=== PATIENT | male | born 1985 | race Caucasian/White ===

== ENCOUNTER 2017-04-20 01:21 | Emergency (ER) | payer OTHER ==
[2017-04-20] MEDS ORDERED: ONDANSETRON 4 MG/2 ML VIAL ONE (01:36)
[2017-04-20] MEDS ORDERED: ONDANSETRON 4 MG/2 ML VIAL IVP ONE (01:37)
[2017-04-20] MEDS ORDERED: fentaNYL 100 MCG/2 ML INJ IVP ONE (01:37)
[2017-04-20] MEDS ORDERED: NS 1,000 ML IV ONE ×2 (01:37→01:59)
--- NOTE | 2017-04-20 02:12 | EDPHY ---
H & P Stated Complaint: RLQ pain, R flank pain Time Seen by Provider: 04/20/17 01:37 HPI/ROS: HPI The patient presents with right-sided flank, right lower quadrant, right testicular pain. Symptoms began slowly at midnight while at rest. Pain began in his right testicle and then began to radiate upwards toward his abdomen and flank. The pain is sharp, intermittent, not improved with ibuprofen he took earlier. He has had several episodes of vomiting upon arrival in the emergency department. He has not had any dysuria or hematuria though he does feel urgency. He has not had a fever. He has not had a rash. He has had about 6 episodes of renal colic in his life, never requiring urologic intervention. He also has had intermittent testicular pain for the last several months. He was evaluated at [facility], had a normal testicular ultrasound and symptoms were thought to be related to bicycle riding. REVIEW OF SYSTEMS Constitutional: No fever, no chills. Eyes: No discharge. ENT: No sore throat. Cardiovascular: No chest pain, no palpitations. Respiratory: No cough, no shortness of breath. Gastrointestinal: See HPI Genitourinary: No hematuria. Musculoskeletal: No back pain. Skin: No rashes. Neurological: No headache. PMHx: Prior history of ureterolithiasis Soc Hx: [employer] student PHYSICAL General Appearance: Alert, no distress Eyes: Pupils equal and round no pallor or injection ENT, Mouth: Mucous membranes moist Respiratory: There are no retractions, lungs are clear to auscultation Cardiovascular: Regular rate and rhythm Gastrointestinal: Abdomen is soft and tender in the right lower quadrant, right flank tenderness no masses, bowel sounds normal , normal cremasteric reflex, no inguinal lymphadenopathy, normal testicular lie, no testicular tenderness or edema Neurological: A&O, moves all extremities Skin: Warm and dry, no rashes Musculoskeletal: Neck is supple non tender Extremities: symmetrical, full range of motion Psychiatric: Patient is oriented X 3, there is no agitation Source: Patient Exam Limitations: No limitations - Personal History Current Tetanus/Diphtheria Vaccine: Yes Current Tetanus Diphtheria and Acellular Pertussis (TDAP): Yes - Medical/Surgical History Hx Asthma: No Hx Chronic Respiratory Disease: No Hx Diabetes: No Hx Cardiac Disease: No Hx Renal Disease: No Hx Cirrhosis: No Hx Alcoholism: No Hx HIV/AIDS: No Hx Splenectomy or Spleen Trauma: No Other PMH: kidney stones - Social History Smoking Status: Current every day smoker Constitutional: Initial Vital Signs Temperature (C) 36.8 C 04/20/17 01:23 Heart Rate 61 04/20/17 01:23 Respiratory Rate 16 04/20/17 01:23 Blood Pressure 153/86 H 04/20/17 01:23 O2 Sat (%) 100 04/20/17 01:23 O2 Delivery Mode Room Air Allergies/Adverse Reactions: No Known Allergies Allergy (Unverified 04/20/17 01:23) Home Medications: Medication Instructions Recorded Tamsulosin HCl [Flomax 0.4 MG (*)] 0.4 mg PO DAILY #10 cap 04/20/17 Medical Decision Making Procedures: Bedside limited abdominal Ultrasound- performed and interpreted by me. Indication: Right-sided flank pain Findings: Right-sided nephrolithiasis, right-sided hydronephrosis, no left- sided hydronephrosis Impression: Right-sided hydronephrosis Differential Diagnosis: 32-year-old male with history of ureterolithiasis presents with several hours of right-sided testicular abdominal and flank pain associated with vomiting. On exam, uncomfortable appearing with normal vital signs, he is tender in his right flank and right lower quadrant. Differential diagnosis includes renal colic, pyelonephritis, appendicitis, less likely epididymitis. In the emergency department, patient received pain medication including lidocaine. Ultrasound at the bedside was performed by me showing right-sided hydronephrosis. Labs were remarkable for hematuria. In about testing, I feel the patient likely is suffering from recurrent ureterolithiasis. He felt better while he was in the Emergency Department on reassessment. He will be discharged home with Flomax and pain medication as well as Zofran. I have given him follow-up with Urology. He has always spontaneously passed kidney stones in the past. - Data Points Laboratory Results: Laboratory Results 04/20/17 01:35 04/20/17 01:35 04/20/17 04/20/17 04/20/17 02:15 01:35 01:35 WBC 10.57 10^3/uL H 10^3/uL (3.80-9.50) RBC 4.88 10^6/uL 10^6/uL (4.40-6.38) Hgb 15.3 g/dL g/dL (13.7-17.5) Hct 43.9 % % (40.0-51.0) MCV 90.0 fL fL (81.5-99.8) MCH 31.4 pg pg (27.9-34.1) MCHC 34.9 g/dL g/dL (32.4-36.7) RDW 12.0 % % (11.5-15.2) Plt Count 315 10^3/uL 10^3/uL (150-400) MPV 10.1 fL fL (8.7-11.7) Neut % (Auto) 41.9 % % (39.3-74.2) Lymph % (Auto) 48.8 % H % (15.0-45.0) [place] % (Auto) 7.4 % % (4.5-13.0) Eos % (Auto) 0.9 % % (0.6-7.6) Baso % (Auto) 0.8 % % (0.3-1.7) Nucleat RBC Rel Count 0.0 % % (0.0-0.2) Absolute Neuts (auto) 4.43 10^3/uL 10^3/uL (1.70-6.50) Absolute Lymphs (auto) 5.16 10^3/uL H 10^3/uL (1.00-3.00) Absolute Monos (auto) 0.78 10^3/uL 10^3/uL (0.30-0.80) Absolute Eos (auto) 0.10 10^3/uL 10^3/uL (0.03-0.40) Absolute Basos (auto) 0.08 10^3/uL 10^3/uL (0.02-0.10) Absolute Nucleated RBC 0.00 10^3/uL 10^3/uL (0-0.01) Immature Gran % 0.2 % % (0.0-1.1) Immature Gran # 0.02 10^3/uL 10^3/uL (0.00-0.10) Sodium 144 mEq/L mEq/L (135-145) Potassium 3.9 mEq/L mEq/L (3.5-5.2) Chloride 105 mEq/L mEq/L (97-110) Carbon Dioxide 22 mEq/l mEq/l (22-31) Anion Gap 17 mEq/L H mEq/L (8-16) BUN 19 mg/dL mg/dL (7-23) Creatinine 0.9 mg/dL mg/dL (0.7-1.3) Estimated GFR > 60 Glucose 120 mg/dL H mg/dL (70-100) Calcium 10.0 mg/dL mg/dL (8.5-10.4) Urine Color YELLOW Urine Appearance HAZY Urine pH 5.0 (5.0-7.5) Ur Specific [place] 1.021 (1.002-1.030) Urine Protein 1+ H (NEGATIVE) Urine Ketones TRACE H (NEGATIVE) Urine Blood 3+ H (NEGATIVE) Urine Nitrate NEGATIVE (NEGATIVE) Urine Bilirubin NEGATIVE (NEGATIVE) Urine Urobilinogen NEGATIVE EU EU (0.2-1.0) Ur Leukocyte Esterase NEGATIVE (NEGATIVE) Urine RBC 50-182 /hpf H /hpf (0-3) Urine WBC 3-5 /hpf H /hpf (0-3) Ur Epithelial Cells NONE SEEN /lpf /lpf (NONE-1+) Urine Mucus TRACE /lpf /lpf (NONE-1+) Urine Glucose NEGATIVE (NEGATIVE) Medications Given: Discontinued Medications Hydrocodone Bitart/Acetaminophen ([place] 5/325mg Prepack#6) 1 btl TAKEHOME EDNOW ONE Stop: 04/20/17 05:23 Last Admin: 04/20/17 05:23 Dose: 1 btl Fentanyl (Sublimaze) 75 mcg IVP EDNOW ONE Stop: 04/20/17 01:38 Last Admin: 04/20/17 01:41 Dose: 75 mcg Hydromorphone HCl (Dilaudid) 0.5 mg IVP EDNOW ONE Stop: 04/20/17 02:44 Last Admin: 04/20/17 03:58 Dose: Not Given Sodium Chloride (Ns) 1,000 mls @ 0 mls/hr IV ONCE ONE PRN Reason: Wide Open Stop: 04/20/17 01:38 Last Admin: 04/20/17 01:41 Dose: 1,000 mls Sodium Chloride (Ns) 1,000 mls @ 0 mls/hr IV ONCE ONE PRN Reason: Wide Open Stop: 04/20/17 02:00 Last Admin: 04/20/17 02:22 Dose: 1,000 mls Lidocaine HCl 135 mg/ Sodium (Chloride) 113.5 mls @ 600 mls/hr IV EDNOW ONE Stop: 04/20/17 02:56 Last Admin: 04/20/17 03:36 Dose: 113.5 mls Morphine Sulfate (Morphine) 4 mg IVP EDNOW ONE Stop: 04/20/17 02:48 Last Admin: 04/20/17 02:48 Dose: 4 mg Ondansetron HCl (Zofran) 4 mg IVP EDNOW ONE Stop: 04/20/17 01:38 Last Admin: 04/20/17 01:41 Dose: 4 mg Ondansetron HCl (Zofran Odt 4 Mg Prepack#2) 1 btl TAKEHOME EDNOW ONE Stop: 04/20/17 05:20 Last Admin: 04/20/17 05:23 Dose: 1 btl Tamsulosin HCl (Flomax) 0.4 mg PO EDNOW ONE Stop: 04/20/17 05:23 Last Admin: 04/20/17 05:23 Dose: 0.4 mg Departure - Departure Disposition: Home, Routine, Self-Care Clinical Impression: Renal colic on right side Condition: Good Instructions: Hydrocodone/Acetaminophen (By mouth), Ondansetron (By mouth), Renal Colic (ED) Additional Instructions: I recommend you take ibuprofen 400 mg every 6 hr for pain. You can take this with Tylenol 650 mg every 6 hr. If the pain is severe, do not take the Tylenol and take the [place] we have given you. You can take the Zofran as needed for any nausea or vomiting you might have. Take the Flomax daily. Drink plenty of fluids and strain her urine. You can follow up with the urologist if your pain continues. You should return to the emergency department if your worse in any way. Referrals: Tani Ruvalcaba MD [Medical Doctor] - As per Instructions Prescriptions: Tamsulosin HCl [Flomax 0.4 MG (*)] 0.4 mg PO DAILY #10 cap
[2017-04-20 02:14] LABS: PLATELET COUNT 315 10^3/uL (150-400)
[2017-04-20] MEDS ORDERED: HYDROmorphONE/DILAUDID 1 MG/ML INJ IVP ONE (02:43)
[2017-04-20] MEDS ORDERED: LIDOCAINE IV ONE (02:45)
[2017-04-20] MEDS ORDERED: NS IV ONE (02:45)
[2017-04-20] MEDS ORDERED: ONDANSETRON 4MG PREPACK#2 BTL TAKEHOME ONE ×2 (05:19)
[2017-04-20] MEDS ORDERED: TAMSULOSIN HCL 0.4 MG CAP PO ONE ×2 (05:19→05:22)
[2017-04-20] MEDS ORDERED: HYDROCOD/APAP 5/325 PREPACK#6 BTL TAKEHOME ONE ×2 (05:19→05:22)
[2017-04-20 05:38] VITALS: BP 125/70; PULSE 801; RESP 6; TEMP 97.9; O2SAT 98
== END 2017-04-20 05:36 | disposition home or self-care (01) ==
DX: N23 Unspecified renal colic (principal); R11.10 Vomiting, unspecified; F17.200 Nicotine dependence, unspecified, uncomplicated
CPT/HCPCS: 96365; J2270; J2405; J3010